=== PATIENT | male | born 1955 | race Caucasian/White ===

== ENCOUNTER 2017-03-19 11:53 | Emergency (ER) | payer OTHER ==
[~2017-03-19] VITALS: Ht 152.4 cm; Wt 9.0 kg
[~2017-03-19 11:53] MED LIST: ALTACE2.5 MG PO; ASPIR 8181 M1 PO; ASPIR-MOX 325325 MG PO; CARVEDILOL25 MG PO; CARVEDILOL6.25 MG PO; DOXAZOSIN MESYLA4 MG PO; DUONEB 2.5-0.5 M3 ML IH; FENOFIBRATE160 M1 PO; FISH OIL 1,0001 EA10 PO; HUMALOG100 UNIT/1 SC; IRON325 MG PO; KIONEX15 GM/60 M PO; LANTUS (UNITS)1 UNIT SC; LANTUS 3 M100 UNITS1 SC; LASIX20 MG PO; LASIX40 MG PO; LOSARTAN POTASS50 MG PO; MAGNESIUM250 MG PO; MINERAL PO; MULTI VIT PO; MULTIVITAMIN1 EAC2 PO; NEURONTIN100 MG PO; NITROGLYCERIN0.4 MG PO; NOVOLOG (UNITS1 UNIT IV; NOVOLOG100 UNIT/3 SC; PLAVIX75 MG PO; PRAVACHOL10 MG PO; PRAVACHOL80 MG PO; PREDNISONE10 MG PO; PROTONIX40 MG PO; VENTOLIN HFA18 GM IH; VICTOZA 2-0.6 MG/0.1 SC; VITAMIN C500 M1 PO; VITAMIN D1000 INTUN PO
[2017-03-19 12:56] LABS: HEMATOCRIT 37.2 % (38.0-50.0); MCH 27.3 PG (29.0-34.0); MCHC 31.2 G/DL (30.0-36.0); MCV 87.5 FL (86-99); MEAN PLAT.VOLUME 11.8 uM^3 (9.0-12.4); PLATELET COUNT 235 K/uL (156-360); RBC DIS.WIDTH-CV 13.3 % (11.8-14.6); RBC DIS.WIDTH-SD 42.3 % (39-53); RED BLOOD COUNT 4.25 M/uL (4.00-5.50); WHITE BLOOD COUNT 10.1 K/uL (4.1-10.2)
[2017-03-19 13:08] LABS: CHLORIDE 103 mEq/L (99-109); POTASSIUM 4.4 mEq/L (3.7-5.4); SODIUM 140 mEq/L (136-147)
[2017-03-19 13:09] LABS: GLUCOSE 177 mg/dL (70-99)
[2017-03-19 13:11] LABS: ANION GAP 12 MEQ/L (2-14)
[2017-03-19 13:13] LABS: GFR ESTIMATE (CALCULATED) 38 mL/min/
[2017-03-19 13:14] LABS: UREA NITROGEN (BUN) 49 mg/dL (9-23)
[2017-03-19 13:21] LABS: TROP-I INTERPRETATION NEGATIVE; TROPONIN-I 0.01 ng/mL (0.0-0.30)
[2017-03-19] MEDS ORDERED: HUMULIN R500 UNIT/1 SC (13:43)
[2017-03-19] MEDS ORDERED: CRESTOR10 MG PO (13:44)
[2017-03-19] MEDS ORDERED: BUMEX1 MG PO (13:45)
[2017-03-19] MEDS ORDERED: VELTASSA16.8 GM PO (13:45)
[2017-03-19] MEDS ORDERED: ZANTAC300 MG PO (13:46)
[2017-03-19] MEDS ORDERED: ULORIC40 MG PO (13:46)
[2017-03-19] MEDS ORDERED: TRAMADOL HCL50 MG PO (13:47)
[2017-03-19] MEDS ORDERED: ZANAFLEX2 M1 PO (13:48)
[2017-03-19] MEDS ORDERED: NYATA15 GM TP (13:49)
[2017-03-19 13:53] LABS: TOTAL BILIRUBIN 0.3 mg/dL (0.0-1.0)
[2017-03-19 13:54] LABS: ALKALINE PHOSPHATASE 221 IU/L (3-129)
[2017-03-19 13:57] LABS: DIRECT BILIRUBIN 0.2 mg/dL (0.0-0.3)
[2017-03-19 15:04] LABS: POINT-OF-CARE METER ID UU13113800
[2017-03-19 15:18] LABS: TROP-I INTERPRETATION NEGATIVE; TROPONIN-I 0.02 ng/mL (0.0-0.30)
[2017-03-19 15:38] LABS: POINT-OF-CARE METER ID UU13113800
[2017-03-19 16:44] VITALS: BP 125/52
== END 2017-03-19 16:55 | disposition home or self-care (01) ==
LOC: EME 11:53
PROVIDERS: Nurse Practitioner Family
DX: R07.9 Chest pain, unspecified (principal); K83.1 Obstruction of bile duct; F41.1 Generalized anxiety disorder; R79.89 Other specified abnormal findings of blood chemistry; I25.2 Old myocardial infarction; K21.9 Gastro-esophageal reflux disease without esophagitis; J44.9 Chronic obstructive pulmonary disease, unspecified; I10 Essential (primary) hypertension; E78.5 Hyperlipidemia, unspecified; E11.9 Type 2 diabetes mellitus without complications; Z85.828 Personal history of other malignant neoplasm of skin; Z79.4 Long term (current) use of insulin; Z87.891 Personal history of nicotine dependence
CPT/HCPCS: 71020; 76705; 80048; 80076; 82948; 83880; 84484; 85027; 93005; 99281; 99284